=== PATIENT | male | born 1970 | race Caucasian/White ===

== ENCOUNTER → 2021-01-21 | Outpatient (CLI) | payer BC ==
[~2021-01-21] MED LIST: CHOLESTEROL MED PO; FLEXERIL 10 MG10 MG PO; LISINOPRIL2.5 MG PO; LORTAB 7.5-3251 EACH PO; PROTONIX40 MG PO; VITAMIN D50000 UNIT PO
== END ==
LOC: RAD 10:00
DX: M19.049 Primary osteoarthritis, unspecified hand (principal)
CPT/HCPCS: 73140

== ENCOUNTER 2021-12-07 15:50 | Emergency (ER) | payer BC | END 2021-12-07 19:37 | disposition home or self-care (01) | LOC: ER1 15:50 | DX: R07.89 Other chest pain (principal); I10 Essential (primary) hypertension; K21.9 Gastro-esophageal reflux disease without esophagitis; X50.0XXA Overexertion from strenuous movement or load, initial encounter | CPT/HCPCS: 71111; 72070; 81001; 99283; J1885 ==

== ENCOUNTER → 2022-01-13 | Outpatient (CLI) | payer BC ==
[2022-01-13 08:45] LABS: HEMOGLOBIN 16.1 gm/dl (14.0-17.5); RED BLOOD COUNT 5.37 M/UL (4.20-5.50); WHITE BLOOD COUNT 10.2 K/UL (4.5-11.0)
[2022-01-13 09:39] LABS: BUN/CREATININE RATIO 19 (0-10)
== END ==
LOC: LAB 07:59
PROVIDERS: Nurse Practitioner Family
DX: Z12.5 Encounter for screening for malignant neoplasm of prostate (principal); I10 Essential (primary) hypertension; E53.8 Deficiency of other specified B group vitamins; E55.9 Vitamin D deficiency, unspecified
CPT/HCPCS: 36415; 80053; 80061; 82607; 84153; 84439; 84443; 85025